=== PATIENT | female | born 1980 | race Caucasian/White ===

== ENCOUNTER 2018-11-10 22:04 | Emergency (ER) | payer OTHER ==
[~2018-11-10] VITALS: Ht 165.1 cm; Wt 69.8 kg
[~2018-11-10 22:04] MED LIST: ALPR1 PO; AMOCLA500 PO; AMOCLA875 PO; AMOX500 PO; CIPR500 PO; CODGUAEL PO; CYCL10 PO; DICL250 PO; DIPATR PO; DULO30 PO; GABA100; HYDACE5 PO; HYDACE5325 PO; HYDGUAL120 PO; HYDR1TAB94 PO; IBUHYD PO; IBUP600 PO; IBUP800 PO; MULVITMINE; ONDA8ODT MM; OXYACE5T PO; Omeprazole20 M1 PO; PROM25 PO; RXOXYACE PO; SERT50; TIZA4 PO; [UNRECOGNIZED DRUG - REMARK]
[2018-11-10] MEDS ORDERED: Keflex500 MG PO (23:02)
== END 2018-11-10 23:00 | disposition home or self-care (01) ==
LOC: ER 22:04
DX: N64.4 Mastodynia (principal); F17.210 Nicotine dependence, cigarettes, uncomplicated
CPT/HCPCS: 99281

== ENCOUNTER 2019-03-14 16:50 | Emergency (ER) | payer SELFPAY ==
[~2019-03-14] VITALS: Ht 165.1 cm; Wt 68.0 kg
[~2019-03-14 16:50] MED LIST changes: +Keflex500 MG PO
[2019-03-14] MEDS ORDERED: IBUP600 PO (18:14)
[2019-03-14] MEDS ORDERED: ONDA4ODT MM (18:14)
== END 2019-03-14 18:19 | disposition home or self-care (01) ==
LOC: ER 16:50
DX: S01.81XA Laceration without foreign body of other part of head, initial encounter (principal); S20.211A Contusion of right front wall of thorax, initial encounter; S41.001A Unspecified open wound of right shoulder, initial encounter; G43.909 Migraine, unspecified, not intractable, without status migrainosus; F17.210 Nicotine dependence, cigarettes, uncomplicated; Y04.2XXA Assault by strike against or bumped into by another person, initial encounter
CPT/HCPCS: 70450; 71046; 90471; 90714; 99284-25

== ENCOUNTER 2019-06-18 07:13 | Emergency (ER) | payer OTHER ==
[~2019-06-18] VITALS: Ht 165.1 cm; Wt 68.0 kg
[~2019-06-18 07:13] MED LIST changes: +ONDA4ODT MM
[2019-06-18] MEDS ORDERED: Amoxicillin500 MG PO (08:06)
[2019-06-18] MEDS ORDERED: IBUP800 PO (08:06)
== END 2019-06-18 08:44 | disposition home or self-care (01) ==
LOC: ER 07:13
DX: K02.9 Dental caries, unspecified (principal); F17.200 Nicotine dependence, unspecified, uncomplicated
CPT/HCPCS: 99282

== ENCOUNTER 2021-03-14 04:38 | Emergency (ER) | payer OTHER ==
[~2021-03-14] VITALS: Ht 165.1 cm; Wt 72.6 kg
[~2021-03-14 04:38] MED LIST changes: +Amoxicillin500 MG PO
[2021-03-14 05:49] LABS: Source, Urine Clean Catch
[2021-03-14 05:52] LABS: Bilirubin, Urine Neg (Neg); Blood, Urine 2+ (Neg); Glucose Qualitative, Urine Neg (Neg); Ketones, Urine Neg (Neg); Leukocyte Esterase, Urine 3+ (Neg); Nitrite, Urine Pos (Neg); Protein, Urine 2+ (Neg); Specific Gravity, Urine 1.025 (1.003-1.022); Urobilinogen, Urine NORM (Normal)
[2021-03-14 05:56] LABS: Appearance, Urine Cloudy (Clear); Color, Urine Yellow (P-Yellow)
[2021-03-14 06:01] LABS: Bacteria Many /hpf; Squamous Epithelial Cells Few /hpf (Few); White Blood Cells, Urine TNTC /hpf (0-5)
[2021-03-14] MEDS ORDERED: OMEP20ER PO (06:20)
[2021-03-14] MEDS ORDERED: Bactrim Ds Tab1 EACH PO (06:20)
== END 2021-03-14 06:43 | disposition home or self-care (01) ==
LOC: ER 04:38
PROVIDERS: Student in an Organized Health Care Education/Training Program
DX: N39.0 Urinary tract infection, site not specified (principal); F17.210 Nicotine dependence, cigarettes, uncomplicated
CPT/HCPCS: 81001; 81025; 87077; 87086; 87186; 99283; A9270

== ENCOUNTER 2021-05-27 19:30 | Emergency (ER) | payer OTHER ==
[~2021-05-27] VITALS: Ht 165.1 cm; Wt 72.6 kg
[~2021-05-27 19:30] MED LIST changes: +Bactrim Ds Tab1 EACH PO; +OMEP20ER PO
== END 2021-05-27 22:06 | disposition home or self-care (01) ==
LOC: ER 19:30
DX: F11.10 Opioid abuse, uncomplicated (principal); R00.2 Palpitations; B34.9 Viral infection, unspecified; F17.210 Nicotine dependence, cigarettes, uncomplicated; Z20.822 Contact with and (suspected) exposure to COVID-19
CPT/HCPCS: 99285

== ENCOUNTER → 2021-06-01 | Outpatient (CLI) | payer OTHER | END | disposition home or self-care (01) | LOC: LAB 15:30 → LAB SHORT 15:30 | DX: G93.3 Postviral and related fatigue syndromes (principal); R53.83 Other fatigue; R53.81 Other malaise | CPT/HCPCS: 87086 ==

== ENCOUNTER 2021-08-27 00:41 | Emergency (ER) | payer OTHER ==
[~2021-08-27] VITALS: Ht 165.1 cm; Wt 68.0 kg
[2021-08-27] MEDS ORDERED: METR500 PO (01:57)
[2021-08-27] MEDS ORDERED: DOXY100 PO (01:57)
== END 2021-08-27 02:04 | disposition home or self-care (01) ==
LOC: ER 00:41
DX: T74.21XA Adult sexual abuse, confirmed, initial encounter (principal); G43.909 Migraine, unspecified, not intractable, without status migrainosus; F17.210 Nicotine dependence, cigarettes, uncomplicated
CPT/HCPCS: 96372; 99284-25; A9270; J0696

== ENCOUNTER 2022-02-24 00:30 | Emergency (ER) | payer OTHER ==
[~2022-02-24] VITALS: Ht 165.1 cm; Wt 68.0 kg
[~2022-02-24 00:30] MED LIST changes: +DOXY100 PO; +METR500 PO
[2022-02-24 01:48] LABS: Source, Urine Clean Catch
[2022-02-24 01:52] LABS: Appearance, Urine Cloudy (Clear); Bilirubin, Urine Neg (Neg); Blood, Urine Neg (Neg); Color, Urine Yellow (P-Yellow); Glucose Qualitative, Urine Neg (Neg); Ketones, Urine Neg (Neg); Leukocyte Esterase, Urine Neg (Neg); Nitrite, Urine Neg (Neg); Protein, Urine 1+ (Neg); Specific Gravity, Urine 1.015 (1.003-1.022); Urobilinogen, Urine NORM (Normal)
[2022-02-24 02:15] LABS: Red Blood Cells, Urine 0-2 /hpf (0-2); Squamous Epithelial Cells Rare /hpf (Few); White Blood Cells, Urine 0-2 /hpf (0-5)
[2022-02-24 02:16] LABS: Amorphous Heavy (0-Heavy); Bacteria Few /hpf
== END 2022-02-24 02:47 | disposition left against medical advice (07) ==
LOC: ER 00:30
PROVIDERS: Student in an Organized Health Care Education/Training Program
DX: R10.9 Unspecified abdominal pain (principal); Z53.21 Procedure and treatment not carried out due to patient leaving prior to being seen by health care provider
CPT/HCPCS: 81001; 81025

== ENCOUNTER 2023-02-23 02:49 | Emergency (ER) | payer OTHER ==
[~2023-02-23] VITALS: Ht 165.1 cm; Wt 74.8 kg
[2023-02-23 03:33] LABS: BASOPHILS ABSOLUTE AUTO 0.02 K/mm3 (0.00-0.23); BASOPHILS PERCENT AUTO 0 % (0-2); EOSINOPHILS ABSOLUTE AUTO 0.02 K/mm3 (0.00-0.68); EOSINOPHILS PERCENT AUTO 0 % (0-6); Hematocrit 37.6 % (33.0-51.0); Hemoglobin 12.9 g/dL (11.5-16.0); IMMATURE GRAN ABSOLUTE AUTO 0.04 K/mm3 (0.00-0.10); IMMATURE GRAN PERCENT AUTO 0 % (0-1); LYMPHOCYTES ABSOLUTE AUTO 2.02 K/mm3 (0.84-5.20); LYMPHOCYTES PERCENT AUTO 21 % (21-46); MONOCYTES ABSOLUTE AUTO 0.48 K/mm3 (0.16-1.47); MONOCYTES PERCENT AUTO 5 % (4-13); Mean Corpuscular HGB 29.1 pg (26.0-34.0); Mean Corpuscular HGB Conc 34.3 g/dL (31.5-36.5); Mean Corpuscular Volume 85 fL (80-100); Mean Platelet Volume 8.7 fL (9.1-12.4); NEUTROPHILS ABSOLUTE AUTO 7.03 K/mm3 (1.96-9.15); NEUTROPHILS PERCENT AUTO 73 % (41-73); Platelet Count 310 K/mm3 (150-400); RDW Coefficient Variation 12.4 % (11.7-14.2); RDW Standard Deviation 38.5 fL (35.1-46.3); Red Blood Cell Count 4.43 M/mm3 (3.80-5.20); White Blood Cell Count 9.61 K/mm3 (4.00-11.30)
[2023-02-23 03:44] LABS: Source, Urine Clean Catch
[2023-02-23 03:50] LABS: Albumin, Blood 3.7 g/dL (3.4-5.0); Albumin/Globulin Ratio 1.3 (0.8-1.8); Bilirubin, Total 0.6 mg/dL (0.1-1.0); Bun/Creatinine Ratio 11.7 (12.0-20.0); Calcium, Blood 8.8 mg/dL (8.5-10.1); Creatinine, Blood 0.77 mg/dL (0.40-1.00); Globulin, Blood 2.9 g/dL (2.2-4.0); Potassium, Blood 3.1 mmol/L (3.5-5.5); Total Protein, Blood 6.6 g/dL (6.4-8.2)
[2023-02-23 03:54] LABS: Bilirubin, Urine Neg (Neg); Blood, Urine 1+ (Neg); Glucose Qualitative, Urine Neg (Neg); Ketones, Urine 1+ (Neg); Leukocyte Esterase, Urine Neg (Neg); Nitrite, Urine Neg (Neg); Protein, Urine 2+ (Neg); Specific Gravity, Urine 1.025 (1.003-1.022); Urobilinogen, Urine 2+ (Normal)
[2023-02-23 04:12] LABS: Appearance, Urine Hazy (Clear); Color, Urine Yellow (P-Yellow)
[2023-02-23 04:14] LABS: Bacteria Mod /hpf; Hyaline Casts 0-2 /lpf (0-2); Mucus Light (0-Heavy); Squamous Epithelial Cells Few /hpf (Few)
[2023-02-23 07:13] VITALS: BP 110/73
== END 2023-02-23 07:12 | disposition home or self-care (01) ==
LOC: ER 02:49
PROVIDERS: Emergency Medicine
DX: R10.10 Upper abdominal pain, unspecified (principal); F17.290 Nicotine dependence, other tobacco product, uncomplicated
CPT/HCPCS: 76705; 80053; 81001; 83690; 85025; A9270; J1170; J2405; J7030

== ENCOUNTER 2023-04-18 15:53 | Emergency (ER) | payer OTHER ==
[~2023-04-18] VITALS: Ht 165.1 cm; Wt 68.0 kg
[2023-04-18 16:44] LABS: BASOPHILS ABSOLUTE AUTO 0.02 K/mm3 (0.00-0.23); BASOPHILS PERCENT AUTO 0 % (0-2); EOSINOPHILS ABSOLUTE AUTO 0.03 K/mm3 (0.00-0.68); EOSINOPHILS PERCENT AUTO 0 % (0-6); Hematocrit 43.1 % (33.0-51.0); Hemoglobin 14.6 g/dL (11.5-16.0); IMMATURE GRAN ABSOLUTE AUTO 0.03 K/mm3 (0.00-0.10); IMMATURE GRAN PERCENT AUTO 0 % (0-1); LYMPHOCYTES ABSOLUTE AUTO 2.16 K/mm3 (0.84-5.20); LYMPHOCYTES PERCENT AUTO 25 % (21-46); MONOCYTES ABSOLUTE AUTO 0.51 K/mm3 (0.16-1.47); MONOCYTES PERCENT AUTO 6 % (4-13); Mean Corpuscular HGB Conc 33.9 g/dL (31.5-36.5); Mean Corpuscular Volume 86 fL (80-100); Mean Platelet Volume 8.5 fL (9.1-12.4); NEUTROPHILS ABSOLUTE AUTO 5.87 K/mm3 (1.96-9.15); NEUTROPHILS PERCENT AUTO 68 % (41-73); Platelet Count 321 K/mm3 (150-400); RDW Coefficient Variation 12.4 % (11.7-14.2); RDW Standard Deviation 38.6 fL (35.1-46.3); Red Blood Cell Count 5.03 M/mm3 (3.80-5.20); White Blood Cell Count 8.62 K/mm3 (4.00-11.30)
[2023-04-18 17:19] LABS: Albumin, Blood 3.7 g/dL (3.4-5.0); Albumin/Globulin Ratio 1.1 (0.8-1.8); Bilirubin, Total 0.5 mg/dL (0.1-1.0); Bun/Creatinine Ratio 15.3 (12.0-20.0); Calcium, Blood 9.2 mg/dL (8.5-10.1); Creatinine, Blood 0.72 mg/dL (0.40-1.00); Globulin, Blood 3.3 g/dL (2.2-4.0); Potassium, Blood 3.8 mmol/L (3.5-5.5)
[2023-04-18 18:55] LABS: Source, Urine Clean Catch
[2023-04-18 19:10] LABS: Appearance, Urine Cloudy (Clear); Bilirubin, Urine Neg (Neg); Blood, Urine 3+ (Neg); Color, Urine Yellow (P-Yellow); Glucose Qualitative, Urine Neg (Neg); Ketones, Urine 1+ (Neg); Leukocyte Esterase, Urine Neg (Neg); Nitrite, Urine Neg (Neg); Protein, Urine 2+ (Neg); Specific Gravity, Urine 1.025 (1.003-1.022); Urobilinogen, Urine 1+ (Normal)
[2023-04-18 19:32] LABS: Bacteria Many /hpf; Mucus Mod (0-Heavy); Squamous Epithelial Cells Many /hpf (Few)
[2023-04-18] MEDS ORDERED: ONDA4ODT MM (20:28)
[2023-04-18 20:30] VITALS: BP 129/83
== END 2023-04-18 20:35 | disposition home or self-care (01) ==
LOC: ER 15:53
PROVIDERS: Student in an Organized Health Care Education/Training Program
DX: R10.13 Epigastric pain (principal); F17.290 Nicotine dependence, other tobacco product, uncomplicated
CPT/HCPCS: 36415; 76705; 80053; 81001; 81025; 83690; 85025; 87086; 93005; 93010; 96374; 99284-25; A9270; J2405

== ENCOUNTER → 2023-10-05 | Outpatient (CLI) | payer OTHER ==
[2023-10-05 16:02] LABS: Candida species (DNA Probe) Negative (NEGATIVE); G. vaginalis (DNA Probe) Negative (NEGATIVE); T. vaginalis (DNA Probe) Positive (NEGATIVE)
[2023-10-07 04:11] LABS: APTIMA MEDIA TYPE Urine; C. TRACHOMATIS BY TMA Negative (Negative); N. GONORRHOEAE BY TMA Negative (Negative); SPECIMEN SOURCE Urine; T. VAGINALIS BY TMA Positive (Negative)
== END | disposition home or self-care (01) ==
LOC: LAB SHORT 13:35 → LAB 13:35
PROVIDERS: Nurse Practitioner
DX: N89.8 Other specified noninflammatory disorders of vagina (principal); Z72.51 High risk heterosexual behavior
CPT/HCPCS: 87480; 87491; 87510; 87591; 87660; 87661

== ENCOUNTER → 2023-11-01 | Outpatient (CLI) | payer OTHER | LOC: LAB SHORT 12:43 → LAB 12:43 | DX: N12 Tubulo-interstitial nephritis, not specified as acute or chronic (principal) | CPT/HCPCS: 87086 ==

== ENCOUNTER 2024-04-02 17:09 | Emergency (ER) | payer OTHER ==
[~2024-04-02] VITALS: Ht 165.1 cm; Wt 79.4 kg
[2024-04-02] MEDS ORDERED: Ketorolac Tromethamine 30mg Vial IM ONE (18:15)
[2024-04-02 18:45] VITALS: BP 114/81
== END 2024-04-02 19:19 | disposition home or self-care (01) ==
LOC: ER 17:09
DX: S05.11XA Contusion of eyeball and orbital tissues, right eye, initial encounter (principal); S29.9XXA Unspecified injury of thorax, initial encounter; S79.911A Unspecified injury of right hip, initial encounter; F17.290 Nicotine dependence, other tobacco product, uncomplicated; W17.89XA Other fall from one level to another, initial encounter
CPT/HCPCS: 70450; 70486; 71101; 72170; 96372; 99284-25; J1885

== ENCOUNTER → 2024-09-29 | Outpatient (CLI) | payer OTHER ==
[2024-09-29 13:45] LABS: Candida Group, PCR NOT DETECTED (NOT DETECT)
[2024-09-29 13:47] LABS: Bacterial Vaginosis PCR Positive (NEGATIVE); Candida glabrata-krusei, PCR DETECTED (NOT DETECT)
== END ==
LOC: LAB 11:42 → LAB SHORT 11:42
PROVIDERS: Student in an Organized Health Care Education/Training Program
DX: R30.0 Dysuria (principal)
CPT/HCPCS: 87481; 87661; 87801

== ENCOUNTER → 2024-09-29 | Outpatient (CLI) | payer OTHER | LOC: LAB 11:42 → LAB SHORT 11:42 | DX: R30.0 Dysuria (principal) | CPT/HCPCS: 87086 ==

== ENCOUNTER → 2024-12-07 | Outpatient (CLI) | payer OTHER ==
[2024-12-12 09:40] LABS: APTIMA MEDIA TYPE Urine; C. TRACHOMATIS BY TMA Negative (Negative); N. GONORRHOEAE BY TMA Negative (Negative); SPECIMEN SOURCE Urine; T. VAGINALIS BY TMA Negative (Negative)
== END ==
LOC: LAB 15:15 → LAB SHORT 15:15
PROVIDERS: Nurse Practitioner Family
DX: R39.15 Urgency of urination (principal)
CPT/HCPCS: 87077; 87086; 87186; 87491; 87591; 87661

== ENCOUNTER → 2025-02-19 | Outpatient (CLI) | payer OTHER | LOC: LAB 18:04 → LAB SHORT 18:04 | DX: N39.0 Urinary tract infection, site not specified (principal) | CPT/HCPCS: 87077; 87086; 87186 ==

== ENCOUNTER → 2025-04-04 | Outpatient (CLI) | payer OTHER ==
[2025-04-04 17:09] LABS: Candida Group, PCR NOT DETECTED (NOT DETECT); Candida glabrata-krusei, PCR NOT DETECTED (NOT DETECT)
[2025-04-05 00:01] LABS: Bacterial Vaginosis PCR Positive (NEGATIVE)
== END | disposition home or self-care (01) ==
LOC: LAB 14:01 → LAB SHORT 14:01
PROVIDERS: Nurse Practitioner Family
DX: N89.8 Other specified noninflammatory disorders of vagina (principal)
CPT/HCPCS: 81515